=== PATIENT | female | born 1980 | race Caucasian/White ===

== ENCOUNTER 2016-11-14 17:52 | Inpatient (IN) | payer OTHER ==
[~2016-11-14] VITALS: Ht 162 cm; Wt 98.4 kg
[2016-11-14] MEDS ORDERED: RINGERS SOLUTION,LACTATED 1,000 ML IV SCH (17:58)
[2016-11-14] MEDS ORDERED: RINGERS SOLUTION,LACTATED 1,000 ML IV PRN (17:58)
[2016-11-14] MEDS ORDERED: OXYTOCIN 30 UNITS/LACT RINGERS 500 ML IV ONE (17:58)
[2016-11-14] MEDS ORDERED: LIDOCAINE HCL/PF 1% 30 ML VIAL INJ PRN (18:00)
[2016-11-14] MEDS ORDERED: METOCLOPRAMIDE HCL 5 MG/ML 2 ML VIAL IVP PRN (18:00)
[2016-11-14] MEDS ORDERED: CITRIC ACID/SODIUM CITRATE 30 ML SOLUTION UDCUP PO PRN (18:00)
[2016-11-14 18:35] LABS: BASOPHILS % (AUTO) 0.2 % (0.0-2.0); HEMATOCRIT 36.2 % (36-46); LYMPHOCYTES # (AUTO) 2.3 K/uL (1.0-4.8); LYMPHOCYTES % (AUTO) 18.1 % (22.0-44.0); MEAN CORPUSCULAR HEMOGLOBIN 26.9 pg (26.0-34.0); MEAN CORPUSCULAR HGB CONC 33.2 G/dL (31.0-37.0); MEAN CORPUSCULAR VOLUME 81 fL (80-100); MONOCYTES # (AUTO) 0.6 K/uL (0.1-1.0); MONOCYTES % (AUTO) 4.9 % (2.0-9.0); NEUTROPHILS # (AUTO) 9.7 K/uL (1.8-7.7); NEUTROPHILS % (AUTO) 75.8 % (40.0-70.0); PLATELET COUNT (AUTO) 236 K/uL (150-450); RED BLOOD CELL COUNT(AUTO) 4.47 MIL/uL (4.00-5.20); RED CELL DISTRIBUTION WIDTH 15.2 % (11.5-14.5); WHITE BLOOD COUNT (AUTO) 12.8 K/uL (4.5-11.0)
[2016-11-14] MEDS ORDERED: PREN1TAB80 PO (18:38)
[2016-11-14 19:01] VITALS: BP 110/66
[2016-11-14] MEDS ORDERED: AMPICILLIN SODIUM 2 GM/NS 100 ML IV SCH (19:30)
[2016-11-14] MEDS ORDERED: MISOPROSTOL 25 MCG TABLET VG ONE (19:30)
[2016-11-14] MEDS ORDERED: AMPICILLIN SODIUM 2 GM/NS 100 ML IV ONE (19:45)
[2016-11-14] MEDS ORDERED: OXYGEN THERAPY IH SCH (20:00)
[2016-11-14 20:26] LABS: GLUCOSE,POINT OF CARE 127 MG/DL (70-110)
[2016-11-14 22:22] LABS: GLUCOSE COMMENT 1 Doctor Notified; GLUCOSE,POINT OF CARE 101 MG/DL (70-110)
[2016-11-15] MEDS ORDERED: AMPICILLIN SODIUM 1 GM/NS 50 ML IV SCH
[2016-11-15] MEDS: MISOPROSTOL 25 MCG TABLET VG SCH ×2 (00:57→05:00)
[2016-11-15 02:16] LABS: GLUCOSE,POINT OF CARE 81 MG/DL (70-110)
[2016-11-15] MEDS ORDERED: INSNPH SQ ×2 (02:29)
[2016-11-15] MEDS ORDERED: INSU100V SQ ×2 (02:29)
[2016-11-15] MEDS ORDERED: OXYTOCIN 30 UNITS/LACT RINGERS 500 ML IV PRN (04:00)
[2016-11-15 06:12] LABS: GLUCOSE,POINT OF CARE 94 MG/DL (70-110)
[2016-11-15] MEDS ORDERED: METOCLOPRAMIDE HCL 5 MG/ML 2 ML VIAL IVP ONE (09:00)
[2016-11-15] MEDS ORDERED: CITRIC ACID/SODIUM CITRATE 30 ML SOLUTION UDCUP PO ONE (09:00)
[2016-11-15] MEDS ORDERED: CeFAZolin 2 GM/DEXTROSE 50 ML IV ONE (10:20)
[2016-11-15] MEDS ORDERED: FentaNYL CITRATE-PF 100 MCG/2 ML VIAL ONE ×2 (10:21→13:47)
[2016-11-15] MEDS ORDERED: MORPHINE SULFATE/PF 1 MG/ML 10 ML AMP ONE (10:21)
[2016-11-15 10:52] LABS: GLUCOSE COMMENT 1 Doctor Notified; GLUCOSE,POINT OF CARE 100 MG/DL (70-110)
[2016-11-15] MEDS ORDERED: OXYTOCIN 10 UNITS/ML VIAL IM ONE (12:00)
[2016-11-15] MEDS ORDERED: EPINEPHrine 1:1,000 [1 MG/ML] AMP SQ ONE (12:00)
[2016-11-15] MEDS ORDERED: 0.9% SODIUM CHLORIDE 10 ML VIAL IVP ONE (12:00)
[2016-11-15] MEDS ORDERED: PHENYLEPHRINE HCL 10 MG/ML VIAL IVP ONE (12:00)
[2016-11-15] MEDS ORDERED: GUM MASTIC/STORAX/MSAL/ALCOHOL LIQUID 0.67 ML VIAL TP ONE (12:35)
[2016-11-15 12:47] LABS: TEMPERATURE, FAHRENHEIT, BG 98.6 FAHREN (96.0-98.6); TOTAL HGB CORD VENOUS 14.9 G/dL (12.0-18.0)
[2016-11-15] MEDS ORDERED: LANOLIN 7 GM OINTMENT TP PRN (13:00)
[2016-11-15] MEDS ORDERED: METHYLERGONOVINE MALEATE 0.2 MG TABLET PO PRN (13:00)
[2016-11-15] MEDS ORDERED: DEXAMETHASONE SOD PHOS 4 MG/ML VIAL IVP PRN (13:00)
[2016-11-15] MEDS ORDERED: PROMETHAZINE HCL 12.5 MG in SODIUM CHLORIDE 0.9% 50 ML IV PRN (13:00)
[2016-11-15] MEDS ORDERED: DiphenhydrAMINE HCL 50 MG/ML VIAL IVP PRN ×2 (13:00→13:30)
[2016-11-15] MEDS ORDERED: ONDANSETRON HCL 4 MG/2 ML VIAL IVP PRN ×2 (13:00→13:30)
[2016-11-15] MEDS ORDERED: INSULIN ASPART 100 UNITS/ML SQ ONE (13:00)
[2016-11-15] MEDS ORDERED: NALBUPHINE HCL 10 MG/ML VIAL IVP PRN (13:00)
[2016-11-15] MEDS ORDERED: MEPERIDINE-PF 25 MG/ML SYRINGE IVP PRN (13:00)
[2016-11-15] MEDS ORDERED: NALOXONE HCL 0.4 MG/ML VIAL IVP PRN (13:30)
[2016-11-15] MEDS ORDERED: DEXTROSE 50%-WATER 25 GM/50 ML SYRINGE IVP PRN (13:30)
[2016-11-15] MEDS: FentaNYL CITRATE-PF 100 MCG/2 ML VIAL IVP PRN ×3 (13:51→22:15)
[2016-11-15] MEDS: NALBUPHINE HCL 10 MG/ML VIAL IVP SCH ×2 (14:53→21:31)
[2016-11-15 15:06] LABS: GLUCOSE,POINT OF CARE 107 MG/DL (70-110)
[2016-11-15] MEDS: DEXTROSE 5%-LACTATED RINGERS 1,000 ML IV SCH (17:05)
[2016-11-15 19:31] LABS: GLUCOSE,POINT OF CARE 94 MG/DL (70-110)
[2016-11-15] MEDS: CeFAZolin 2 GM/DEXTROSE 50 ML IV SCH (21:52)
[2016-11-16 00:02] LABS: GLUCOSE,POINT OF CARE 111 MG/DL (70-110)
[2016-11-16] MEDS: DEXTROSE 5%-LACTATED RINGERS 1,000 ML IV SCH (01:53)
[2016-11-16] MEDS: NALBUPHINE HCL 10 MG/ML VIAL IVP SCH ×2 (03:45→09:05)
[2016-11-16 04:08] LABS: GLUCOSE,POINT OF CARE 126 MG/DL (70-110)
[2016-11-16] MEDS: CeFAZolin 2 GM/DEXTROSE 50 ML IV SCH (05:08)
[2016-11-16] MEDS ORDERED: FentaNYL CITRATE-PF 100 MCG/2 ML VIAL IVP PRN ×3 (05:15)
[2016-11-16] MEDS: IBUPROFEN 800 MG TABLET PO PRN ×2 (05:44→22:16)
[2016-11-16 06:20] LABS: BASOPHILS % (AUTO) 0.3 % (0.0-2.0); EOSINOPHILS % (AUTO) 0.8 % (1.0-6.0); HEMATOCRIT 32.3 % (36-46); HEMOGLOBIN 10.6 g/dL (12.0-16.0); LYMPHOCYTES # (AUTO) 1.6 K/uL (1.0-4.8); LYMPHOCYTES % (AUTO) 14.8 % (22.0-44.0); MEAN CORPUSCULAR HEMOGLOBIN 26.7 pg (26.0-34.0); MEAN CORPUSCULAR HGB CONC 32.7 G/dL (31.0-37.0); MEAN CORPUSCULAR VOLUME 81 fL (80-100); MONOCYTES # (AUTO) 0.7 K/uL (0.1-1.0); MONOCYTES % (AUTO) 6.6 % (2.0-9.0); NEUTROPHILS # (AUTO) 8.6 K/uL (1.8-7.7); NEUTROPHILS % (AUTO) 77.5 % (40.0-70.0); RED BLOOD CELL COUNT(AUTO) 3.97 MIL/uL (4.00-5.20); RED CELL DISTRIBUTION WIDTH 15.6 % (11.5-14.5); WHITE BLOOD COUNT (AUTO) 11.2 K/uL (4.5-11.0)
[2016-11-16] MEDS: INSULIN ASPART 100 UNITS/ML SQ PRN ×2 (09:02→20:03)
[2016-11-16] MEDS: SENNA/DOCUSATE SODIUM 187-50 MG TABLET PO PRN (09:05)
[2016-11-16] MEDS: MAGNESIUM HYDROXIDE SUSPENSION 30 ML UDCUP PO PRN ×2 (09:05→22:16)
[2016-11-16] MEDS ORDERED: INSULIN GLARGINE,HUM.REC.ANLOG 100 UNITS/ML SQ SCH (12:00)
[2016-11-16] MEDS: OxyCODONE HCL/ACETAMINOPHEN 5-325 MG TABLET PO PRN ×2 (12:35→18:22)
[2016-11-16 13:17] LABS: GLUCOSE,POINT OF CARE 116 MG/DL (70-110)
[2016-11-16 13:17] LABS: GLUCOSE,POINT OF CARE 173 MG/DL (70-110)
[2016-11-16 16:32] LABS: GLUCOSE,POINT OF CARE 122 MG/DL (70-110)
[2016-11-16 20:17] LABS: GLUCOSE,POINT OF CARE 168 MG/DL (70-110)
[2016-11-17 00:07] LABS: GLUCOSE,POINT OF CARE 121 MG/DL (70-110)
[2016-11-17 04:13] LABS: GLUCOSE,POINT OF CARE 111 MG/DL (70-110)
[2016-11-17] MEDS ORDERED: LABETALOL HCL 100 MG TABLET PO ONE (08:30)
[2016-11-17 08:41] LABS: GLUCOSE,POINT OF CARE 115 MG/DL (70-110)
[2016-11-17] MEDS: OxyCODONE HCL/ACETAMINOPHEN 5-325 MG TABLET PO PRN ×3 (08:54→15:11)
[2016-11-17 12:17] LABS: GLUCOSE,POINT OF CARE 108 MG/DL (70-110)
[2016-11-17] MEDS: INSULIN ASPART 100 UNITS/ML SQ PRN (17:11)
[2016-11-17 17:12] LABS: GLUCOSE,POINT OF CARE 145 MG/DL (70-110)
[2016-11-17 17:12] LABS: GLUCOSE,POINT OF CARE 147 MG/DL (70-110)
[2016-11-17] MEDS ORDERED: INSULIN GLARGINE,HUM.REC.ANLOG 100 UNITS/ML SQ SCH (18:00)
[2016-11-17 20:52] LABS: GLUCOSE,POINT OF CARE 123 MG/DL (70-110)
[2016-11-17] MEDS: MAGNESIUM HYDROXIDE SUSPENSION 30 ML UDCUP PO PRN (20:54)
[2016-11-17] MEDS: SENNA/DOCUSATE SODIUM 187-50 MG TABLET PO PRN (20:54)
[2016-11-17] MEDS: IBUPROFEN 800 MG TABLET PO PRN (20:54)
[2016-11-18 00:11] LABS: GLUCOSE,POINT OF CARE 133 MG/DL (70-110)
[2016-11-18 04:06] LABS: GLUCOSE,POINT OF CARE 124 MG/DL (70-110)
[2016-11-18] MEDS ORDERED: PNEUMOCOCCAL VACCINE POLYVALENT 0.5 ML VIAL [PPSV23] IM ONE ×2 (05:00)
[2016-11-18] MEDS: OxyCODONE HCL/ACETAMINOPHEN 5-325 MG TABLET PO PRN (08:48)
[2016-11-18 08:53] LABS: GLUCOSE,POINT OF CARE 113 MG/DL (70-110)
[2016-11-18] MEDS ORDERED: HYDR-305 PO (11:05)
[2016-11-18] MEDS ORDERED: METF500T4 PO (11:05)
[2016-11-18] MEDS ORDERED: FERR-89 PO (11:10)
[2016-11-18] MEDS ORDERED: DSS100 PO (11:10)
== END 2016-11-18 12:00 | disposition home or self-care (01) | DRG 766 ==
LOC: 4S 17:52 → OBSVTOIN 17:52 → 4S 11-15 15:17
PROVIDERS: ADMIT Specialist; ATTEND Specialist
PROC: 10D00Z1 Extraction of Products of Conception, Low, Open Approach (ICD-10-PCS; principal; 2016-11-15)
PROC: 0UB70ZZ Excision of Bilateral Fallopian Tubes, Open Approach (ICD-10-PCS; 2016-11-15)
PROC: 3E0234Z Introduction of Serum, Toxoid and Vaccine into Muscle, Percutaneous Approach (ICD-10-PCS; 2016-11-18)
DX: O99.824 Streptococcus B carrier state complicating childbirth (principal); O24.12 Pre-existing type 2 diabetes mellitus, in childbirth; E11.9 Type 2 diabetes mellitus without complications; O69.81X0 Labor and delivery complicated by cord around neck, without compression, not applicable or unspecified; O34.211 Maternal care for low transverse scar from previous cesarean delivery; O32.8XX0 Maternal care for other malpresentation of fetus, not applicable or unspecified; O34.13 Maternal care for benign tumor of corpus uteri, third trimester; D25.9 Leiomyoma of uterus, unspecified; O99.62 Diseases of the digestive system complicating childbirth; K21.9 Gastro-esophageal reflux disease without esophagitis; O99.214 Obesity complicating childbirth; Z68.37 Body mass index [BMI] 37.0-37.9, adult; Z3A.38 38 weeks gestation of pregnancy; Z37.0 Single live birth; Z30.2 Encounter for sterilization; O09.523 Supervision of elderly multigravida, third trimester; Z91.018 Allergy to other foods; Z23 Encounter for immunization; O09.43 Supervision of pregnancy with grand multiparity, third trimester
CPT/HCPCS: 76805; 82962; 86850; 86900; 86901; 88302; 88305; 90471; J0171; J0290; J0690; J1200; J1815; J2300; J2370; J2590; J2765; J3010; J7120